=== PATIENT | female | born 1970 | race Two or more races ===

== ENCOUNTER 2017-08-09 19:55 | Emergency (ER) | payer MEDICAID ==
[2017-08-09 20:13] VITALS: BP 137/79
--- NOTE | 2017-08-09 21:26 | ER Document Report ---
ED Skin Rash/Insect Bite/Abscs - General Chief Complaint: Rash Stated Complaint: RASH Time Seen by Provider: 08/09/17 20:35 Mode of Arrival: Ambulatory Information source: Patient TRAVEL OUTSIDE OF THE [place] IN LAST 30 DAYS: No - HPI Patient complains to provider of: Skin rash/lesion Onset: This morning Quality of pain: No pain Severity: Mild Pain Level: Denies Skin Character: Erythema Skin Temperature: Warm Identify cause: No Notes: Patient arrives with complaints of redness underneath and behind both of her ears. She states that a friend at work noticed this. She states that if they would not of brought it up she would not have even noticed that this was there. She denies any pain, itching, swelling, fever, cough, sore throat, blurred or loss vision, headache. She denies any other complaints. She googled this, and was concerned that she may have rubella, although all of her immunizations are up-to-date and she has been around no one that has been ill. - Related Data Allergies/Adverse Reactions: No Known Allergies Allergy (Unverified 12/17/13 07:33) Past Medical History - Social History Smoking Status: Unknown if Ever Smoked Family History: Other Patient has suicidal ideation: No Patient has homicidal ideation: No Renal/ Medical History: Denies: Hx Peritoneal Dialysis - Immunizations Hx Diphtheria, Pertussis, Tetanus Vaccination: Yes Review of Systems - Review of Systems -: Yes All other systems reviewed and negative Physical Exam - Vital signs Vitals: Temp Pulse BP Pulse Ox 98.2 F 97 137/79 H 97 08/09/17 20:12 08/09/17 20:12 08/09/17 20:12 08/09/17 20:12 - Notes Notes: GENERAL: alert, cooperative, nontoxic, no distress. HEAD: normocephalic, atraumatic EYES: conjunctiva pink without discharge, no external redness or swelling. EARS: no external swelling, no external redness NOSE: atraumatic, no external swelling MOUTH/THROAT: mucous membranes moist and pink NECK: soft, supple, full range of motion, no meningismus. CHEST: no distress, lungs clear and equal throughout. No wheezing, rales, rhonchi. CARDIAC: regular rate and rhythm, no murmur, normal capillary refill, normal pulses. BACK: full range of motion, no CVA tenderness. EXTREMITIES: full range of motion of all extremities. No redness, no swelling. NEURO: alert and oriented 3, no focal deficits, full range of motion of all extremities. PYSCH: appropriate mood, affect. Patient is cooperative. SKIN: pink, warm, dry, slight redness to the skin behind and below the bilateral ears. No swelling. No induration. No abscess. Nontender. No vesicles. No lymphadenopathy noted. Remainder of the skin exam is unremarkable with no obvious rash. Course - Re-evaluation Re-evalutation: 08/09/17 21:23 Patient is nontoxic appearing with stable vitals. The patient is noted to have some mild redness underneath and behind both of her ears. She denies any new soaps, detergents, lotions, medications. She denies putting anything new on her ears or any new earrings. Skin is slightly red in this area, is nontender, nonswollen, no lymphadenopathy. Very nonspecific appearing. The fact that is located both ears, makes me think it is potentially a contact type dermatitis. She was instructed to use the steroid cream that she normally uses on her skin in this area and to take an [id number] antihistamine. Follow-up if not better in 5 days, sooner for increased pain, fever, increased redness, or any further concerns. The patient is noted to have elevated blood pressure during today's emergency department visit. The patient was informed of this finding. The patient was instructed that this may be related to pre-hypertension and requires further evaluation with a primary care provider. The patient has no hypertensive symptoms at this time. The patient's emergency department workup and current diagnosis were explained to the patient and or family. Follow-up instructions were provided. Medications if prescribed were discussed. Instructions for when to return to the emergency department including specific worrisome symptoms were discussed with the patient and/or family. - Vital Signs Vital signs: Temp Pulse Resp BP Pulse Ox 98.2 F 97 137/79 H 97 08/09/17 20:12 08/09/17 20:12 08/09/17 20:12 08/09/17 20:12 Discharge - Discharge Clinical Impression: Dermatitis Condition: Stable Disposition: HOME, SELF-CARE Instructions: Contact Dermatitis ([facility]) Additional Instructions: Try her steroid cream to the reddened areas and take [id number] antihistamine such as Claritin. Follow-up if not better in 5 days, sooner for increased pain, fever, increased rash, difficulty breathing or swallowing, or any further concerns. Your blood pressure was elevated during today's visit. Have this rechecked with your doctor. Forms: Elevated Blood Pressure Referrals: [facility] [Provider Group] - Follow up as needed
== END 2017-08-09 21:39 | disposition home or self-care (01) ==
LOC: ER 19:55
DX: L30.9 Dermatitis, unspecified (principal); R03.0 Elevated blood-pressure reading, without diagnosis of hypertension
CPT/HCPCS: 99282

== ENCOUNTER 2017-09-12 07:36 | Day surgery (SDC) | payer MEDICAID ==
[~2017-09-12 07:36] MED LIST: PROPOFOL INJ 200 MG/20 ML VIAL IV ONE
[2017-09-12 09:24] VITALS: BP 111/71
--- NOTE | 2017-09-12 12:27 | Operative Report ---
Operative Report DATE OF SURGERY: 09/12/17 Operative Report: The risks, benefits and alternatives of the procedure including risks of bleeding, perforation requiring surgery are explained to the patient in detail and informed consent is obtained. Patient is taken back to the endoscopy suite and placed in the left, lateral decubital position. Timeout was called. Propofol medications administered. A rectal examination is done which did not reveal any masses, tears or fissures. An Olympus videoscope was inserted into the patient's rectum. The scope was then carefully advanced all the way to the cecum. The cecum was identified by the usual anatomical landmarks including the ileocecal valve as well as the appendiceal office. Photodocumentation was obtained. The scope was then sequentially pulled back via the various segments of the colon including the ascending colon, hepatic flexure, transverse colon, splenic flexure, descending colon went to the rectosigmoid portions of the colon. Retroflexion maneuvers performed. PREOPERATIVE DIAGNOSIS: Rectal bleeding, change in bowel habits. POSTOPERATIVE DIAGNOSIS: Mild right-sided inflammation in the colon status post biopsy rule out lymphocytic, microscopic, collagenous colitis. Internal hemorrhoids likely explain the patient's blood in the stools OPERATION: Colonoscopy with biopsy SURGEON: EMMANUEL PIKE ANESTHESIA: LMAC TISSUE REMOVED OR ALTERED: As noted above. No diverticulosis COMPLICATIONS: None. ESTIMATED BLOOD LOSS: None. INTRAOPERATIVE FINDINGS: As described above. PROCEDURE: Patient tolerated procedure well. No immediate postprocedure complications are noted. Patient discharged in good condition. Discharge date 09/12/2017. Discharge diet: Regular. Discharge activity: Regular. 2-3 week follow-up to discuss findings. Patient is instructed to call the office or proceed to the emergency room should there be any further problems or questions. We will await pathology.
== END 2017-09-12 09:20 | disposition home or self-care (01) ==
LOC: END 07:36
PROVIDERS: ATTEND Internal Medicine Gastroenterology
PROC: 0DBF8ZX Excision of Right Large Intestine, Via Natural or Artificial Opening Endoscopic, Diagnostic (ICD-10-PCS; principal; 2017-09-12 09:00)
DX: K62.5 Hemorrhage of anus and rectum (principal); K52.9 Noninfective gastroenteritis and colitis, unspecified; K64.8 Other hemorrhoids; F17.210 Nicotine dependence, cigarettes, uncomplicated; Z79.899 Other long term (current) drug therapy; Z79.1 Long term (current) use of non-steroidal anti-inflammatories (NSAID); Z88.8 Allergy status to other drugs, medicaments and biological substances
CPT/HCPCS: 45380; 88305 ×2; J2704; 810